=== PATIENT | female | born 2000 | race Caucasian/White ===

== ENCOUNTER → 2022-01-12 19:57 | Observation (INO) ==
[2022-01-12 18:44] LABS: Bacteria,Urine Few per hpf (None-Few); Bilirubin,Urine Negative (Negative); Blood,Urine Negative (Negative); Clarity,Urine Clear (Clear); Color,Urine Colorless (Yellow); Glucose,Urine (UA) Normal (Normal); Ketones,Urine Negative (Negative); Leukocyte Esterase,Urine Small (Negative); Nitrite,Urine Negative (Negative); PH,Urine 6.5 pH Units (5.0-8.0); Protein,Urine Negative (Neg-Trace); RBC,Urine 0-3 per hpf (0-3); Specific Gravity,Urine 1.007 (1.010-1.025); Squamous Epithelial Cell,Urine Few per hpf (None-Few); Urobilinogen,Urine Normal (Normal); WBC,Urine 0-3 per hpf (0-3)
[2022-01-12 19:33] LABS: Candida DNA Not Detected (Not Detect); Gardnerella DNA Not Detected (Not Detect); Trichomonas DNA Not Detected (Not Detect)
== END | disposition home or self-care (01) ==
LOC: 1NENULAB
PROVIDERS: ADMIT Registered Nurse; ATTEND Registered Nurse

== ENCOUNTER 2022-02-25 09:24 | Observation (INO) ==
[2022-02-24 23:36] LABS: Basophils % 0.3 %; Eosinophils % 0.4 %; Hematocrit 37.1 % (35.3-44.9); Hemoglobin 12.8 g/dL (11.5-15.4); Immature Granulocytes % 0.3 % (0-4); Lymphocytes % 20.7 %; Mean Corpuscular HGB Conc 34.5 g/dL (31.6-35.5); Mean Corpuscular Hemoglobin 31.1 pg (28.0-33.3); Monocytes # 0.7 K/mcL (0.0-1.3); Monocytes % 7.5 %; Neutrophils # 6.7 K/mcL (1.6-8.9); Platelet Count 205 K/mcL (140-400); Red Blood Count 4.12 M/mcL (3.82-4.97); Red Cell Distribution Width 12.9 % (11.5-14.5); Segmented Neutrophils % 70.8 %; White Blood Count 9.5 K/mcL (4.3-11.1)
[2022-02-24 23:41] LABS: Protein/Creatinine Ratio,Urine 0.18 mg/mg (0.00-0.20)
[2022-02-24 23:51] LABS: Alanine Aminotransferase 8 Units/L (7-52); Aspartate Amino Transferase 12 Units/L (13-39); BUN/Creatinine Ratio 15 (6-26); Blood Urea Nitrogen 9 mg/dL (6-20); Lactate Dehydrogenase 102 Units/L (140-271); Uric Acid 6.1 mg/dL (2.3-7.6); eGFR For African Americans > 60 (> 60); eGFR For Non-African Americans > 60 (> 60)
[~2022-02-25 09:24] MED LIST: Metoclopramide 10 MG/2 ML VIAL IVP ONE
== END 2022-02-25 10:05 | disposition home or self-care (01) ==
LOC: 1NENULAB
PROVIDERS: ADMIT Registered Nurse; ATTEND Registered Nurse

== ENCOUNTER 2022-02-26 18:46 | Inpatient (IN) ==
[2022-02-26] MEDS: Ringers Solution, Lactated 1,000 ML IVC SCH (15:50)
[2022-02-26 16:03] LABS: Basophils % 0.1 %; Eosinophils % 0.2 %; Hematocrit 36.6 % (35.3-44.9); Hemoglobin 12.6 g/dL (11.5-15.4); Immature Granulocytes % 0.5 % (0-4); Lymphocytes # 1.4 K/mcL (0.6-4.6); Lymphocytes % 13.4 %; Mean Corpuscular HGB Conc 34.4 g/dL (31.6-35.5); Mean Corpuscular Hemoglobin 30.7 pg (28.0-33.3); Mean Corpuscular Volume 89.1 fL (83.0-100.0); Mean Platelet Volume 12.8 fL (9.4-12.4); Monocytes # 0.7 K/mcL (0.0-1.3); Monocytes % 6.3 %; Neutrophils # 8.3 K/mcL (1.6-8.9); Platelet Count 208 K/mcL (140-400); Red Blood Count 4.11 M/mcL (3.82-4.97); Red Cell Distribution Width 12.9 % (11.5-14.5); Segmented Neutrophils % 79.5 %; White Blood Count 10.4 K/mcL (4.3-11.1)
[2022-02-26 16:04] LABS: Creatinine,Urine 33 mg/dL; Protein/Creatinine Ratio,Urine 0.15 mg/mg (0.00-0.20)
[2022-02-26 16:16] LABS: Alanine Aminotransferase 7 Units/L (7-52); Aspartate Amino Transferase 11 Units/L (13-39); BUN/Creatinine Ratio 12 (6-26); Blood Urea Nitrogen 8 mg/dL (6-20); Lactate Dehydrogenase 108 Units/L (140-271); Uric Acid 6.5 mg/dL (2.3-7.6); eGFR For African Americans > 60 (> 60); eGFR For Non-African Americans > 60 (> 60)
[2022-02-26] MEDS: Magnesium Sulf 20 gm/SW 500mL 20 GM/500 ML IV.SOLN IVC SCH (16:33)
[2022-02-26 16:58] LABS: Amphetamine Screen,Urine Negative ng/mL (Cutoff=1000); Barbiturate Screen,Urine Negative ng/mL (Cutoff=200); Benzodiazepines Screen,Urine Negative ng/mL (Cutoff=200); Cannabinoid Screen,Urine Negative ng/mL (Cutoff = 50); Cocaine Screen,Urine Negative ng/mL (Cutoff= 300); Opiate Screen,Urine Negative ng/mL (Cutoff=300); Phencyclidine Screen,Urine Negative ng/mL (Cutoff=25)
[2022-02-26 17:53] LABS: Influenza A PCR Negative (Negative); Influenza B PCR Negative (Negative); Resp. Syncytial Virus PCR Negative (Negative); SARS-CoV-2 by PCR (In House) Negative (Negative)
[2022-02-26] MEDS: Epidural Premix (fent/bupiv) 110 ML EP SCH (18:10)
[~2022-02-26 18:46] MED LIST changes: +*HR* Labetalol 20 MG/4 ML SYRINGE IVP ONE; +*HR* Labetalol 20 MG/4 ML SYRINGE IVP PRN; +Azithromycin 500 MG in 0.9 % Sodium Chloride 250 ML IVPB PRN; +Calcium Gluconate 1,000 MG/10 ML VIAL IVP PRN; +EPHEDrine 50 MG/ML VIAL IVP PRN; +Famotidine 20 MG/2 ML VIAL IVP PRN; -Metoclopramide 10 MG/2 ML VIAL IVP ONE; +Metoclopramide 10 MG/2 ML VIAL IVP PRN; +Naloxone 0.4 MG/ML INJ IVP PRN; +Ondansetron 4 MG/2 ML VIAL IVP PRN; +Ringers Solution, Lactated 1,000 ML IVC SCH; +Ringers Solution, Lactated 1,000 ML ONE; +miSOPROStoL 25 MCG TABLET PO PRN
[2022-02-26] MEDS ORDERED: Oxytocin 30 UNIT/503 ML BAG IVC SCH (20:00)
[2022-02-26] MEDS ORDERED: Acetaminophen 325 MG TABLET PO PRN (20:22)
[2022-02-27] MEDS: Magnesium Sulf 20 gm/SW 500mL 20 GM/500 ML IV.SOLN IVC SCH ×3 (01:45→20:42)
[2022-02-27] MEDS: Epidural Premix (fent/bupiv) 110 ML EP SCH ×3 (02:18→17:11)
[2022-02-27] MEDS: Ringers Solution, Lactated 1,000 ML IVC SCH (11:00)
[2022-02-28] MEDS ORDERED: *HR* Labetalol 20 MG/4 ML SYRINGE IVP PRN ×3 (04:21)
[2022-02-28] MEDS ORDERED: *HR* Labetalol 20 MG/4 ML SYRINGE IVP ONE (04:22)
[2022-02-28] MEDS: Magnesium Sulf 20 gm/SW 500mL 20 GM/500 ML IV.SOLN IVC SCH ×2 (06:48→18:45)
[2022-02-28] MEDS ORDERED: Benzocaine/Menthol 56 GM AEROSOL SPRAY TP PRN (09:34)
[2022-02-28] MEDS ORDERED: Ondansetron ODT 4 MG TAB.RAPDIS SL PRN (09:34)
[2022-02-28] MEDS ORDERED: *HR* OxyCODONE Immed Rel 5 MG TABLET PO PRN (09:34)
[2022-02-28] MEDS ORDERED: Calcium Gluconate 1,000 MG/10 ML VIAL IVP PRN (09:34)
[2022-02-28] MEDS ORDERED: Oxytocin 30 UNIT/503 ML BAG IVC SCH (09:34)
[2022-02-28] MEDS ORDERED: Lanolin 7 G OINT...G. TP PRN (09:34)
[2022-02-28] MEDS: Acetaminophen 325 MG TABLET PO SCH ×2 (11:50→20:06)
[2022-02-28] MEDS: Ibuprofen 600 MG TABLET PO SCH ×2 (11:50→20:06)
[2022-02-28] MEDS ORDERED: CeFAZolin 2,000 MG/120 ML BAG IVPB SCH ×2 (12:00)
[2022-02-28 13:36] VITALS: O2SAT 99
[2022-02-28] MEDS: ceFAZolin 2,000 MG in 0.9 % Sodium Chloride 100 ML IVPB SCH (20:07)
[2022-03-01] MEDS: Acetaminophen 325 MG TABLET PO SCH ×2 (01:56→08:03)
[2022-03-01] MEDS: Ibuprofen 600 MG TABLET PO SCH ×2 (01:56→08:04)
[2022-03-01] MEDS: ceFAZolin 2,000 MG in 0.9 % Sodium Chloride 100 ML IVPB SCH (04:10)
[2022-03-01 05:49] LABS: Basophils % 0.3 %; Eosinophils % 0.3 %; Immature Granulocytes % 0.5 % (0-4); Lymphocytes # 1.8 K/mcL (0.6-4.6); Lymphocytes % 13.1 %; Mean Corpuscular HGB Conc 33.9 g/dL (31.6-35.5); Mean Corpuscular Hemoglobin 30.8 pg (28.0-33.3); Mean Corpuscular Volume 90.9 fL (83.0-100.0); Mean Platelet Volume 12.6 fL (9.4-12.4); Monocytes # 0.8 K/mcL (0.0-1.3); Monocytes % 5.5 %; Neutrophils # 11.3 K/mcL (1.6-8.9); Platelet Count 187 K/mcL (140-400); Red Blood Count 3.41 M/mcL (3.82-4.97); Red Cell Distribution Width 13.7 % (11.5-14.5); Segmented Neutrophils % 80.3 %
[2022-03-01 05:52] LABS: Hemoglobin 10.5 g/dL (11.5-15.4)
[2022-03-01] MEDS: Magnesium Sulf 20 gm/SW 500mL 20 GM/500 ML IV.SOLN IVC SCH (05:53)
[2022-03-01 06:05] LABS: Protein/Creatinine Ratio,Urine 0.47 mg/mg (0.00-0.20)
[2022-03-01 06:16] LABS: Alanine Aminotransferase 6 Units/L (7-52); Aspartate Amino Transferase 11 Units/L (13-39); BUN/Creatinine Ratio 11 (6-26); Blood Urea Nitrogen 9 mg/dL (6-20); Lactate Dehydrogenase 154 Units/L (140-271); Uric Acid 8.3 mg/dL (2.3-7.6); eGFR For African Americans > 60 (> 60); eGFR For Non-African Americans > 60 (> 60)
[2022-03-01] MEDS ORDERED: Prenatal Vit/FA 1 EACH TABLET PO SCH (09:00)
[2022-03-01 15:42] VITALS: BP 142/92; PULSE 86; TEMP 98
== END 2022-03-01 16:20 | disposition home or self-care (01) | DRG 560 ==
LOC: 1NENULAB → 1NENUOBS 02-28 11:15
PROVIDERS: ADMIT Advanced Practice Midwife; ATTEND Advanced Practice Midwife